=== PATIENT | female | born 1995 | race Caucasian/White ===

== ENCOUNTER 2018-08-07 06:49 | Inpatient (IN) | payer OTHER ==
[~2018-08-07] VITALS: Ht 160 cm; Wt 79.1 kg
[2018-08-10] VITALS (9 sets, daily range): BP systolic 84–115; BP diastolic 46–73; PULSE 70–92; TEMP 98.2
[2018-08-10] MEDS ORDERED: CALCIUM CARBON650 M2 (19:08)
[2018-08-10] MEDS ORDERED: PRENATAL MVI (19:08)
--- NOTE | 2018-08-10 20:00 | NUR ---
190- Patient ambulatory with , [place], and electronic engineering technician to LDR-6. Patient oriented to room. Patient into restroom to change into gown. 1901- EFM and TOCO on and tracing. Patient here for overnight Cytotec induction per . Patient denies LOF, bleeding, or spotting. Patient denies contractions. Plan of care explained to patient. Questions encouraged and answered. Assessment completed. Consents signed. 1929- IV started. Lab work collected. 1949- SVE /-2. Cytotec 25mcg PO given. See eMAR.
--- NOTE | 2018-08-10 22:00 | NUR ---
2200- Off monitors per Cytotec protocol.
[2018-08-11] VITALS (69 sets, daily range): BP systolic 91–142; BP diastolic 47–98; PULSE 57–142; TEMP 97.2–99.5
--- NOTE | 2018-08-11 04:00 | NUR ---
0000- EFM and TOCO on and tracing. Cytotec 25mcg PO given. See eMAR. 0200- Patient resting peacefully in room. EFM and TOCO off per protocol. 0400- EFM and TOCO on and tracing. Patient states she is feeling contractions but "not all of them are uncomfortable".
--- NOTE | 2018-08-11 06:30 | NUR ---
Report received, care assumed. Patient resting in bed with at side. Plan of care reviewed, patient denies needs at this time.
--- NOTE | 2018-08-11 07:00 | NUR ---
Pitocin started at 2mu per orders and protocol.
--- NOTE | 2018-08-11 09:25 | NUR ---
Dr. Mensah at bedside, reviews FHR tracing, discusses plan of care with patient and . SVE with AROM by Dr. Mensah. 2 - clear, blood tinged fluid noted.
--- NOTE | 2018-08-11 10:15 | NUR ---
Patient more uncomfortable with contractions, tense and breathing through them, patient assisted to birthing ball, family at bedside for support.
[2018-08-11 10:33] LABS: HEMATOCRIT 37.2 % (37.0-47.0); HEMOGLOBIN 12.3 g/dl (12.5-16.0); MEAN CELL VOLUME 91 fl (80.0-100.0); MEAN CORPUSCULAR HEMOGLOBIN 30 pg (27.0-31.0); MEAN CORPUSCULAR HGB CONC 33 g/dl (33.0-37.0); MEAN PLATELET VOLUME 9.5 fl (7.4-10.4); PLATELET COUNT 174 K/mm3 (130-400); RED BLOOD COUNT 4.09 M/mm3 (4.10-5.30); REDCELL DISTRIBUTION WIDTH-CV 13.7 % (11.5-14.5)
[2018-08-11 10:50] LABS: BAND 4 % (0-10); EOSINOPHIL 2 % (0-4); LYMPHOCYTE 14 % (20.0-51.0); MYELOCYTE 2 % (0-0); NEUTROPHILS 74 % (42.0-75.2)
[2018-08-11 10:51] LABS: PLATELET ESTIMATE NORMAL (NORMAL)
[2018-08-11 10:53] LABS: TOXIC GRANULATION PRESENT
--- NOTE | 2018-08-11 11:51 | NUR ---
1145 - Patient more uncomfortable with contractions, breathing through them. SVE /-2 with bloody show. Patient requesting IV pain medication for pain control. Dr. Mensah called and order received. 1151 - 1mg of stadol given slow IV push over 1 contraction. Plan of care reviewed. Family at bedside.
--- NOTE | 2018-08-11 12:30 | NUR ---
Patient with emesis x2 after stadol. Dr. Mensah called and updated. Orders for zofran received. 1229 - 8mg zofran given IV per orders.
--- NOTE | 2018-08-11 12:58 | NUR ---
1252 LILIAN Clark to room to place epidural. Patient sits upright on the side of the bed for procedure. Test dose administered at 1258 by LILIAN Clark - see anesthesia record for details. 1303 Patient wedged to left side.
--- NOTE | 2018-08-11 14:15 | NUR ---
Patient comfortable with epidural. SVE /-2. Patient turned to high left side with peanut ball between legs.
--- NOTE | 2018-08-11 15:20 | NUR ---
Dr. Mensah at bedside, reviews FHR tracing. SVE /-[address] Mensah. Patient turned to right side with peanut ball between legs. Pitocin decreased to 10mu per orders.
--- NOTE | 2018-08-11 17:00 | NUR ---
SVE 5-6/90/-2, bloody show noted. Patient turned to high left side with peanut ball between legs. Plan of care reviewed. Dr. Mensah updated.
--- NOTE | 2018-08-11 18:40 | NUR ---
intran placed per Dr Mensah. SVE no change.
--- NOTE | 2018-08-11 19:15 | NUR ---
KNEE CHEST PER PT AND FAMILY REQUEST TO HASTEN DILITATION
--- NOTE | 2018-08-11 21:10 | NUR ---
PT MAKING RAPID DESCENT- DR BERNARDO CALLED FOR DELIVERY 2119 DR BERNARDO HERE, SVE- THICK MEC UPON EXAM- NONE NOTED EARLIER.IUPC REMOVED- COMING OUT WITH PUSHING. CTX PALPABLE. 2201 CTXS Q 1.5 MIN. PALPABLE, ABLE TO LISTEN TO FHR WHEN PT NOT PUSHING. AUDIBLE AT 2205 90'S. AUDIBLE [id number] 120-150. 2207 HEAD DELIVERY AT 2208.HEAD OF BED LOWERED SUPRAPUBIC PRESSURE FROM RT SIDE. 2208 WITH NUCHAL CORD 2208. BABY TO WARMER FOR NSY CARE. Heather TRIVEDI BELT SPLICER CALLED FOR ASSIST WITH BABY
--- NOTE | 2018-08-11 21:20 | NUR ---
PITOCIN TO 10 MU/MIN DU TO FREQUENCCY OF CTXS.
--- NOTE | 2018-08-11 21:20 | NUR ---
Tori BERNARDO HERE SVE, THICK MECWITH HER EXAM. NURSERY NOTIFIED OF THIS AND MOMS TEMP 100.0 ORAL
--- NOTE | 2018-08-11 21:30 | NUR ---
DR AGUAYO AT BEDSIDE PT PUSHES. JEF SCRUB COMPLETED. SPOUSE AND SISTER COACHING. 2211 CORD BLOOD GASSES DRAWN, PLACENTA TO PATHOLOGY 2229 SUPORT TO PT AND FAMILY SHE IS CRYING AND WORRIED ABOUT BABY
--- NOTE | 2018-08-11 23:09 | NUR ---
LESS THAN 30 SEC SHOULDER DYSTOCIA
[2018-08-12 00:07] VITALS: BP 117/72; PULSE 108
[2018-08-12 00:37] VITALS: BP 116/61; PULSE 81; TEMP 98
--- NOTE | 2018-08-12 02:20 | NUR ---
DISCHARGE ORDERS IF PT WISHES OBTAINED FROM DR BERNARDO IF PT STABLE. MAY TAKE OTC TYLENOL AND IBUPROFEN. EVAL FOR RHOGAM.
[2018-08-12 04:02] LABS: HEMOGLOBIN 12.2 g/dl (12.5-16.0); MEAN CELL VOLUME 89 fl (80.0-100.0); MEAN CORPUSCULAR HEMOGLOBIN 31 pg (27.0-31.0); MEAN CORPUSCULAR HGB CONC 34 g/dl (33.0-37.0); MEAN PLATELET VOLUME 9.3 fl (7.4-10.4); PLATELET COUNT 190 K/mm3 (130-400); RED BLOOD COUNT 3.99 M/mm3 (4.10-5.30); REDCELL DISTRIBUTION WIDTH-CV 13.6 % (11.5-14.5)
[2018-08-12 04:03] LABS: HEMATOCRIT 35.5 % (37.0-47.0)
--- NOTE | 2018-08-12 04:45 | NUR ---
INT REMAINS FOR RHOGAM ADM
[2018-08-12 04:59] LABS: BAND 50 % (0-10); LYMPHOCYTE 2 % (20.0-51.0); METAMYELOCYTE 2 % (0-0); NEUTROPHILS 44 % (42.0-75.2); PLATELET ESTIMATE NORMAL (NORMAL)
[2018-08-12 05:01] LABS: OVALOCYTES 1+
[2018-08-12 06:45] VITALS: BP 113/74; PULSE 82; TEMP 97.9
--- NOTE | 2018-08-12 09:45 | NUR ---
Rests in bed, alert. Discharge instructions given, verbalizes understanding. 5017 Dismissed to home with patients father, alert, stable, wheel chair to vehicle.
--- NOTE | 2018-08-12 10:00 | NUR ---
Initial visit; Mom thanked Proposal Director for offering comfort, encouragement and support and reminding her of God's ever presence.
== END 2018-08-12 09:50 | disposition home or self-care (01) | DRG 807 ==
LOC: OB 08-10 06:49 → LDR 08-10 18:52 → OB 08-12 01:00
PROVIDERS: ADMIT Obstetrics & Gynecology
PROC: 3E0P7GC Introduction of Other Therapeutic Substance into Female Reproductive, Via Natural or Artificial Opening (ICD-10-PCS; 2018-08-10)
PROC: 10E0XZZ Delivery of Products of Conception, External Approach (ICD-10-PCS; principal; 2018-08-11)
PROC: 10907ZC Drainage of Amniotic Fluid, Therapeutic from Products of Conception, Via Natural or Artificial Opening (ICD-10-PCS; 2018-08-11)
PROC: 3E033VJ Introduction of Other Hormone into Peripheral Vein, Percutaneous Approach (ICD-10-PCS; 2018-08-11)
DX: O48.0 Post-term pregnancy (principal); Z37.0 Single live birth; O77.0 Labor and delivery complicated by meconium in amniotic fluid; O99.214 Obesity complicating childbirth; O66.0 Obstructed labor due to shoulder dystocia; O70.0 First degree perineal laceration during delivery; O69.1XX0 Labor and delivery complicated by cord around neck, with compression, not applicable or unspecified; Z3A.40 40 weeks gestation of pregnancy
CPT/HCPCS: J0595; J2405; J2590; J2791; J2795; J7120